=== PATIENT | male | born 1970 | race Caucasian/White ===

== ENCOUNTER 2016-08-23 16:47 | Emergency (ER) | payer BC ==
[~2016-08-23] VITALS: Ht 190.5 cm; Wt 131.1 kg
[2016-08-23] MEDS ORDERED: AMLO5TAB2 (17:10)
[2016-08-23] MEDS ORDERED: VALSARTAN-HCTZ (17:10)
[2016-08-23] MEDS ORDERED: ASPIRIN 81 MG CHEW TABLET PO ONE (17:15)
[2016-08-23] MEDS ORDERED: TENECTEPLASE 50 MG KIT (TNKase)(J3101) IV ONE (17:15)
[2016-08-23] MEDS ORDERED: VALS1TAB47 (17:15)
[2016-08-23] MEDS ORDERED: PRAV20TA2 (17:15)
[2016-08-23] MEDS ORDERED: HEPARIN DRIP 25,000 UNITS in APPROPRIATE DILUENT 1 EA IV SCH (17:24)
[2016-08-23 17:29] LABS: BASO % 0.4 % (0.0-1.0); EOS % 0.5 % (0.0-3.0); LARGE UNSTAINED CELL # 0.1 K/mm3 (0.0-0.4); LARGE UNSTAINED CELL % 0.7 % (0.0-4.0); LYMPH # 1.5 K/mm3 (1.5-4.5); LYMPH % 16.4 % (24.0-44.0); MEAN CORPUSCULAR HEMOGLOBIN 27.6 pg (27.0-33.0); MEAN CORPUSCULAR HGB CONC 32.9 g/dl (32.0-36.5); MEAN CORPUSCULAR VOLUME 83.9 fl (80.0-96.0); MONO # 0.4 K/mm3 (0.0-0.8); MONO % 4.3 % (0.0-5.0); NEUTROPHILS # 6.9 K/mm3 (1.8-7.7); NEUTROPHILS % 77.7 % (36.0-66.0); PLATELET COUNT, AUTOMATED 210 k/mm3 (150-450); RED CELL DISTRIBUTION WIDTH 14.2 % (11.5-14.5); WHITE BLOOD COUNT 8.8 K/mm3 (4.0-10.0)
[2016-08-23 17:30] VITALS: BP 138/79
[2016-08-23] MEDS ORDERED: HEPARIN SOD (PORCINE) 5000 UNITS/ML VIAL IV ONE (17:30)
[2016-08-23] MEDS: NITROGLYCERIN 0.4 MG SUBL TABLET SL PRN ×2 (17:30→17:36)
[2016-08-23] MEDS ORDERED: CLOPIDOGREL 300 MG TAB (PLAVIX) PO ONE (17:30)
[2016-08-23] MEDS ORDERED: HEPARIN 25,000 UNITS/250 ML D5W BAG (100 UNITS/ML) ONE (17:34)
[2016-08-23] MEDS ORDERED: TENECTEPLASE 50 MG KIT (TNKase)(J3101) ONE (17:34)
[2016-08-23] MEDS ORDERED: HEPARIN SOD (PORCINE) 5000 UNITS/ML VIAL ONE (17:34)
[2016-08-23] MEDS ORDERED: ASPIRIN 81 MG CHEW TABLET ONE (17:34)
[2016-08-23] MEDS ORDERED: NITROGLYCERIN 0.4 MG SUBL TABLET ONE (17:34)
[2016-08-23] MEDS ORDERED: CLOPIDOGREL 300 MG TAB (PLAVIX) ONE (17:34)
[2016-08-23 17:35] VITALS: BP 131/79
[2016-08-23 18:04] LABS: ALBUMIN/GLOBULIN RATIO 1.08 (1.00-1.93); ALKALINE PHOSPHATASE 91 U/L (45-117); ALT/SGPT 38 U/L (12-78); ANION GAP 6 MEQ/L (8-16); AST/SGOT 19 U/L (15-37); BILIRUBIN,DIRECT < 0.1 MG/DL (0.0-0.2); BILIRUBIN,TOTAL 0.4 MG/DL (0.2-1.0); BLOOD UREA NITROGEN 11 MG/DL (7-18); CALCIUM LEVEL 8.4 MG/DL (8.5-10.1); CARBON DIOXIDE LEVEL 30 MEQ/L (21-32); CHLORIDE LEVEL 98 MEQ/L (98-107); CREATININE FOR GFR 0.75 MG/DL (0.70-1.30); GLOMERULAR FILTRATION RATE > 60.0 (>60); GLUCOSE, FASTING 155 MG/DL (70-105); POTASSIUM SERUM 3.6 MEQ/L (3.5-5.1); SODIUM LEVEL 134 MEQ/L (136-145); TOTAL PROTEIN 7.7 GM/DL (6.4-8.2)
--- NOTE | 2016-08-23 19:05 | REP ---
clinical: Chest pain. Comparison: None. Findings: Mediastinum and cardiac silhouette are normal. No focal consolidation, effusion, or pneumothorax. Skeletal structures intact. Impression: No acute cardiopulmonary process or focal consolidation. Signed by Tk Ruiz MD 08/23/2016 06:56 P
== END 2016-08-23 17:43 | disposition short-term general hospital (02) ==
LOC: M ED 17:33
DX: I21.3 ST elevation (STEMI) myocardial infarction of unspecified site (principal); I10 Essential (primary) hypertension; E78.5 Hyperlipidemia, unspecified; Z79.899 Other long term (current) drug therapy; Z82.49 Family history of ischemic heart disease and other diseases of the circulatory system
CPT/HCPCS: 36415; 71010; 80048; 80076; 82550; 82553; 83690; 85025; 85379; 85610; 85730; 86850; 86900; 86901; 93041; 94760; 96374; 96375; 99285; J3101

== ENCOUNTER 2016-09-18 08:15 | Outpatient (RCR) | payer BC ==
[~2016-09-18 08:15] MED LIST: AMLO5TAB2; PRAV20TA2; VALS1TAB47; VALSARTAN-HCTZ
== END 2016-09-20 ==
LOC: M CR 08:15
PROVIDERS: ATTEND Internal Medicine Cardiovascular Disease
DX: Z51.89 Encounter for other specified aftercare (principal); I25.10 Atherosclerotic heart disease of native coronary artery without angina pectoris; Z98.1 Arthrodesis status

== ENCOUNTER → 2016-10-21 | Outpatient (RCR) | payer BC | LOC: M CR 09-21 08:15 | PROVIDERS: ATTEND Internal Medicine Cardiovascular Disease | DX: Z51.89 Encounter for other specified aftercare (principal); I25.10 Atherosclerotic heart disease of native coronary artery without angina pectoris; Z98.1 Arthrodesis status ==

== ENCOUNTER 2016-11-19 08:21 | Outpatient (RCR) | payer BC | END 2016-11-20 | LOC: M CR 08:21 | PROVIDERS: ATTEND Internal Medicine Cardiovascular Disease | DX: Z51.89 Encounter for other specified aftercare (principal); I25.10 Atherosclerotic heart disease of native coronary artery without angina pectoris; Z98.1 Arthrodesis status ==

== ENCOUNTER 2016-12-03 08:15 | Outpatient (RCR) | payer BC | END 2016-12-21 | LOC: M CR 08:15 | PROVIDERS: ATTEND Internal Medicine Cardiovascular Disease | DX: Z48.812 Encounter for surgical aftercare following surgery on the circulatory system (principal); Z98.1 Arthrodesis status; I25.10 Atherosclerotic heart disease of native coronary artery without angina pectoris ==